=== PATIENT | male | born 1940 | race Caucasian/White ===

== ENCOUNTER → 2016-05-17 | Outpatient (CLI) | payer MEDICARE ==
[~2016-05-17] MED LIST: ASPI81CH5 PO; DAPA1TAB2 PO; GLIM4 PO; LEVO50TA4 PO; LISI-360 PO; PRAS10TA PO; TAB-TAB PO; TAMS0.4C67 PO; TOPR25TA2 PO; VICT18IN SUBD
[2016-05-17 10:04] LABS: BICARBONATE 26.8 MEQ/L (21.0-32.0); BLOOD UREA NITROGEN 15 MG/DL (7-18); GLUCOSE,FASTING 156 MG/DL (74-99)
[2016-05-17 10:06] LABS: ANION GAP 8 MEQ/L (5-15); CHLORIDE 108 MEQ/L (98-107); POTASSIUM 4.1 MEQ/L (3.5-5.1); SODIUM (NA) 143 MEQ/L (136-145)
[2016-05-17 10:07] LABS: ALT (GPT) 22 U/L (12-78); AST (GOT) 12 U/L (15-37); GLOMERULAR FILTRATION RATE 76 ML/MIN (>89)
[2016-05-17 10:08] LABS: TOTAL BILIRUBIN ADULT 0.3 MG/DL (0.2-1.0)
[2016-05-17 10:10] LABS: ALKALINE PHOSPHATASE 101 U/L (45-117)
[2016-05-17 16:23] LABS: HEMOGLOBIN A1b 2.3 %; HEMOGLOBIN Ao 82.4 %; HEMOGLOBIN LA1C 2.5 %; HEMOGLOBIN P3 4.4 %
== END ==
LOC: PLAB 08:13
PROVIDERS: ATTEND Internal Medicine Endocrinology, Diabetes & Metabolism
DX: E11.65 Type 2 diabetes mellitus with hyperglycemia (principal)
CPT/HCPCS: 36415; 80053; 83036

== ENCOUNTER → 2016-11-24 | Outpatient (CLI) | payer MEDICARE ==
[2016-11-24 09:38] LABS: ANION GAP 10 MEQ/L (5-15); AST (GOT) 14 U/L (15-37); BLOOD UREA NITROGEN 18 MG/DL (7-18); CHLORIDE 105 MEQ/L (98-107); GLOMERULAR FILTRATION RATE 84 ML/MIN (>89); POTASSIUM 3.7 MEQ/L (3.5-5.1); SODIUM (NA) 140 MEQ/L (136-145)
[2016-11-24 09:51] LABS: ALKALINE PHOSPHATASE 75 U/L (45-117); ALT (GPT) 20 U/L (12-78); FREE T4 1.12 NG/DL (0.76-1.46); TOTAL BILIRUBIN ADULT 0.6 MG/DL (0.2-1.0)
[2016-11-24 17:17] LABS: HEMOGLOBIN A1b 2.2 %; HEMOGLOBIN Ao 82.6 %; HEMOGLOBIN LA1C 1.9 %
== END ==
LOC: PLAB 07:15
PROVIDERS: ATTEND Internal Medicine Endocrinology, Diabetes & Metabolism
DX: E11.65 Type 2 diabetes mellitus with hyperglycemia (principal); E04.1 Nontoxic single thyroid nodule; E03.9 Hypothyroidism, unspecified
CPT/HCPCS: 36415; 80053; 83036; 84439; 84443

== ENCOUNTER → 2017-02-06 | Outpatient (CLI) | payer MEDICARE ==
[2017-02-06 11:58] LABS: ALT (GPT) 23 U/L (12-78); ANION GAP 7 MEQ/L (5-15); AST (GOT) 15 U/L (15-37); BICARBONATE 27.1 MEQ/L (21.0-32.0); BLOOD UREA NITROGEN 12 MG/DL (7-18); CHLORIDE 107 MEQ/L (98-107); GLOMERULAR FILTRATION RATE 73 ML/MIN (>89); GLUCOSE,FASTING 136 MG/DL (74-99); MAGNESIUM 1.9 MG/DL (1.5-2.5); POTASSIUM 3.8 MEQ/L (3.5-5.1); SODIUM (NA) 141 MEQ/L (136-145)
[2017-02-06 12:08] LABS: ALKALINE PHOSPHATASE 89 U/L (45-117); FREE T4 1.19 NG/DL (0.76-1.46); MICRO ALBUMIN RANDOM URINE RAW 8.4 MG/L (0.0-30.0); TOTAL BILIRUBIN ADULT 0.4 MG/DL (0.2-1.0)
[2017-02-06 13:51] LABS: HEMOGLOBIN A1a 1.1 %; HEMOGLOBIN A1b 2.2 %; HEMOGLOBIN LA1C 2.4 %; HEMOGLOBIN P3 4.4 %
== END ==
LOC: PLAB 08:19
PROVIDERS: ATTEND Internal Medicine Endocrinology, Diabetes & Metabolism
DX: E11.65 Type 2 diabetes mellitus with hyperglycemia (principal); E03.9 Hypothyroidism, unspecified
CPT/HCPCS: 36415; 80053; 82043; 83036; 83735; 84439; 84443

== ENCOUNTER → 2017-07-18 | Outpatient (CLI) | payer MEDICARE ==
[2017-07-18 11:25] LABS: AUTOMATED NEUTROPHIL # 2.8 TH/MM3 (1.8-7.7); BASOPHIL % 0.6 % (0.0-2.0); EOSINOPHIL # 0.2 TH/MM3 (0-0.4); EOSINOPHIL % 4.7 % (0.0-4.0); HEMATOCRIT 41.3 % (39.0-51.0); LYMPH % 34.2 % (9.0-44.0); LYMPHOCYTE # 1.8 TH/MM3 (1.0-4.8); MEAN CELL VOLUME 86.6 FL (80.0-100.0); MEAN CORPUSCULAR HEMOGLOBIN 29.3 PG (27.0-34.0); MEAN CORPUSCULAR HGB CONC 33.9 % (32.0-36.0); MEAN PLATELET VOLUME 8.6 FL (7.0-11.0); MONO % 8.2 % (0.0-8.0); MONOCYTE # 0.4 TH/MM3 (0-0.9); NEUT % 52.3 % (16.0-70.0); PLATELET COUNT 203 TH/MM3 (150-450); RED BLOOD COUNT 4.77 MIL/MM3 (4.50-5.90); RED CELL DISTRIBUTION WIDTH 14.8 % (11.6-17.2); WHITE BLOOD COUNT 5.3 TH/MM3 (4.0-11.0)
[2017-07-18 11:37] LABS: ALBUMIN 3.4 GM/DL (3.4-5.0); AST (GOT) 11 U/L (15-37); BICARBONATE 26.2 MEQ/L (21.0-32.0); BLOOD UREA NITROGEN 15 MG/DL (7-18); CALCIUM 8.9 MG/DL (8.5-10.1); CHLORIDE 103 MEQ/L (98-107); CREATININE 0.99 MG/DL (0.60-1.30); GLOMERULAR FILTRATION RATE 73 ML/MIN (>89); GLUCOSE,FASTING 187 MG/DL (74-99); SODIUM (NA) 139 MEQ/L (136-145)
[2017-07-18 11:38] LABS: ALT (GPT) 19 U/L (12-78); CHOLESTEROL 90 MG/DL (120-200)
[2017-07-18 11:48] LABS: ALKALINE PHOSPHATASE 111 U/L (45-117); CHOLESTEROL/ HDL RATIO 1.52 RATIO; HDL CHOLESTEROL 58.9 MG/DL (40.0-60.0); LDL CHOLESTEROL 19 MG/DL (0-99); THYROXINE (T4) 8.8 MCG/DL (4.5-12.1); TOTAL BILIRUBIN ADULT 0.3 MG/DL (0.2-1.0); TOTAL PROTEIN 6.8 GM/DL (6.4-8.2); TRIGLYCERIDES 59 MG/DL (42-150)
[2017-07-18 16:29] LABS: HEMOGLOBIN A1C 8.1 % (4.3-6.0)
== END ==
LOC: PLAB 08:19
PROVIDERS: ATTEND Family Medicine
DX: E03.9 Hypothyroidism, unspecified (principal); I25.9 Chronic ischemic heart disease, unspecified; E11.9 Type 2 diabetes mellitus without complications; E78.2 Mixed hyperlipidemia
CPT/HCPCS: 36415; 80053; 80061; 83036; 84436; 84443; 85025

== ENCOUNTER → 2017-08-15 | Outpatient (CLI) | payer MEDICARE ==
[2017-08-15 10:52] LABS: ALBUMIN 3.2 GM/DL (3.4-5.0); AST (GOT) 13 U/L (15-37); BICARBONATE 25.5 MEQ/L (21.0-32.0); BLOOD UREA NITROGEN 17 MG/DL (7-18); CALCIUM 8.9 MG/DL (8.5-10.1); CHLORIDE 108 MEQ/L (98-107); CREATININE 0.97 MG/DL (0.60-1.30); GLOMERULAR FILTRATION RATE 75 ML/MIN (>89); GLUCOSE,FASTING 133 MG/DL (74-99); SODIUM (NA) 142 MEQ/L (136-145)
[2017-08-15 11:01] LABS: ALKALINE PHOSPHATASE 105 U/L (45-117); ALT (GPT) 12 U/L (12-78); CHOLESTEROL 73 MG/DL (120-200); FREE T4 1.09 NG/DL (0.76-1.46); HDL CHOLESTEROL 45.6 MG/DL (40.0-60.0); LDL CHOLESTEROL 12 MG/DL (0-99); TOTAL BILIRUBIN ADULT 0.3 MG/DL (0.2-1.0); TOTAL PROTEIN 7.1 GM/DL (6.4-8.2); TRIGLYCERIDES 79 MG/DL (42-150)
[2017-08-15 17:44] LABS: HEMOGLOBIN A1C 8.7 % (4.3-6.0)
== END ==
LOC: PLAB 07:52
PROVIDERS: ATTEND Internal Medicine Endocrinology, Diabetes & Metabolism
DX: E11.65 Type 2 diabetes mellitus with hyperglycemia (principal); E78.5 Hyperlipidemia, unspecified; E03.9 Hypothyroidism, unspecified
CPT/HCPCS: 36415; 80053; 80061; 82043; 83036; 84439; 84443